=== PATIENT | male | born 1985 | race African-American/Black ===

== ENCOUNTER 2016-06-07 23:55 | Emergency (ER) | payer OTHER ==
[~2016-06-07] VITALS: Ht 170.2 cm; Wt 65.0 kg
[~2016-06-07 23:55] MED LIST: DICY1TAB26 PO; PANT20 PO; PERC5TAB12 PO; SUCR1TAB PO
[2016-06-07 23:57] VITALS: BP 142/76; PULSE 97; RESP 16; TEMP 99; O2SAT 95
[2016-06-08] MEDS ORDERED: SODIUM CHLOR 0.9% 1000 ML INJ 1,000 ML IV SCH (02:24)
[2016-06-08] MEDS ORDERED: MORPHINE SULFATE 4 MG/ML INJ IV PUSH ONE (02:30)
[2016-06-08] MEDS ORDERED: SODIUM CHLORIDE 0.9% FLUSH 5 ML FLUSH IVF PRN (02:30)
[2016-06-08] MEDS ORDERED: ONDANSETRON HCL 4 MG/2 ML VIAL IVP ONE (02:30)
--- NOTE | 2016-06-08 02:43 | PD ---
HPI Chief Complaint: Flank/Kidney Pain Time Seen by Provider: 02:19 Travel History International Travel<30 days: No Contact w/Intl Traveler<30days: No Traveled to known affect area: No History of Present Illness HPI Is a 30-year-old man who presents to the emergency department complaining of abdominal pain. He localizes the pain really to the left inguinal area. Started today. She's been constant, worsening. No history of previous similar symptoms. He has had episodes of clamminess and chills. Did not check his temperature. No other associated symptoms. He is not noticed any urinary changes or dark colored urine. No change in his bowel movements. No nausea or vomiting. Is no history of kidney stones. No testicular pain or tenderness. No other complaints. History Past Medical History Medical History: Denies Significant Hx Social History Alcohol Use: Yes (OCC.) Tobacco Use: Yes (1 PACK PER WEEK) Allergies-Medications (Allergen,Severity, Reaction): Coded Allergies: No Known Allergies (Verified , 06/08/16) Reported Meds & Prescriptions Reported Meds & Active Scripts Active Percocet 5-325 mg (Oxycodone/Acetaminophen) Oxycodone 5/325 Acetaminophen Tab 1- 2 Tab PO Q6H PRN Bentyl (Dicyclomine HCl) 20 Mg Tab 20 Mg PO Q8 Carafate 1 Gm Tab (Sucralfate) 1 Gm Tab 1 Gm PO TIDACHS Take with water on an empty stomach. To reduce the potential of adversely affecting the absorption of other drugs, take other drugs 2 hours prior to Sucralfate. Protonix (Pantoprazole Sodium) 20 Mg Tab 20 Mg PO DAILY Review of Systems Except as stated in HPI: all other systems reviewed are Neg Physical Exam Narrative GENERAL: 30-year-old man, no acute distress. SKIN: Warm and dry. NECK: Trachea midline. No JVD. CARDIOVASCULAR: Regular rate and rhythm. No murmur appreciated. RESPIRATORY: No accessory muscle use. Clear to auscultation. Breath sounds equal bilaterally. GASTROINTESTINAL: Abdomen is flat and soft. He has moderate left lower quadrant tenderness to palpation with some voluntary guarding. MUSCULOSKELETAL: No obvious deformities. No edema. NEUROLOGICAL: Awake and alert. No obvious cranial nerve deficits. Motor grossly within normal limits. Normal speech. PSYCHIATRIC: Appropriate mood and affect; insight and judgment normal. Data Data Last Documented VS Vital Signs Date Time Temp Pulse Resp B/P Pulse Ox O2 Delivery O2 Flow Rate FiO2 06/07/16 23:57 99.0 97 16 142/76 95 Room Air Orders Complete Blood Count With Diff (06/08/16 02:24) Comprehensive Metabolic Panel (06/08/16 02:24) Lipase (06/08/16 02:24) Urinalysis - C+S If Indicated (06/08/16 02:24) Ct Abd/Pel W/O Iv Contrast (06/08/16 02:24) Iv Access Insert/Monitor (06/08/16 02:24) Morphine Inj (Morphine Inj) (06/08/16 02:30) Ondansetron Inj (Zofran Inj) (06/08/16 02:30) Sodium Chlor 0.9% 1000 Ml Inj (Ns 1000 M (06/08/16 02:24) Sodium Chloride 0.9% Flush (Ns Flush) (06/08/16 02:30) Ciprofloxacin 400 Mg Premix (Cipro 400 M (06/08/16 03:30) Metronidazole 500 Mg Inj (Flagyl 500 Mg (06/08/16 03:30) Labs Laboratory Tests Test 06/08/16 02:00 White Blood Count 15.7 TH/MM3 Red Blood Count 5.02 MIL/MM3 Hemoglobin 15.1 GM/DL Hematocrit 43.7 % Mean Corpuscular Volume 87.1 FL Mean Corpuscular Hemoglobin 30.0 PG Mean Corpuscular Hemoglobin 34.4 % Concent Red Cell Distribution Width 13.5 % Platelet Count 246 TH/MM3 Mean Platelet Volume 10.0 FL Neutrophils (%) (Auto) 72.2 % Lymphocytes (%) (Auto) 14.8 % Monocytes (%) (Auto) 10.9 % Eosinophils (%) (Auto) 1.6 % Basophils (%) (Auto) 0.5 % Neutrophils # (Auto) 11.3 TH/MM3 Lymphocytes # (Auto) 2.3 TH/MM3 Monocytes # (Auto) 1.7 TH/MM3 Eosinophils # (Auto) 0.2 TH/MM3 Basophils # (Auto) 0.1 TH/MM3 CBC Comment DIFF FINAL Differential Comment Urine Color YELLOW Urine Turbidity CLEAR Urine pH 6.0 Urine Specific [place] 1.029 Urine Protein TRACE mg/dL Urine Glucose (UA) NEG mg/dL Urine Ketones NEG mg/dL Urine Occult Blood NEG Urine Nitrite NEG Urine Bilirubin NEG Urine Urobilinogen 2.0 MG/DL Urine Leukocyte Esterase NEG Urine RBC 2 /hpf Urine WBC 1 /hpf Urine Squamous Epithelial 1 /hpf Cells Urine Mucus MANY /lpf Microscopic Urinalysis Comment CULT NOT INDICATED Sodium Level 139 MEQ/L Potassium Level 3.8 MEQ/L Chloride Level 105 MEQ/L Carbon Dioxide Level 25.4 MEQ/L Anion Gap 9 MEQ/L Blood Urea Nitrogen 5 MG/DL Creatinine 0.75 MG/DL Estimat Glomerular Filtration 146 ML/MIN Rate Random Glucose 99 MG/DL Calcium Level 8.7 MG/DL Total Bilirubin 0.3 MG/DL Aspartate Amino Transf 16 U/L (AST/SGOT) Alanine Aminotransferase 34 U/L (ALT/SGPT) Alkaline Phosphatase 126 U/L Total Protein 7.6 GM/DL Albumin 3.7 GM/DL Lipase 99 U/L MDM Medical Decision Making Medical Screen Exam Complete: Yes Emergency Medical Condition: Yes Interpretation(s) LABS: CBC remarkable for mild leukocytosis. CMP unremarkable UA unremarkable CT abdomen and pelvis: Severe inflammatory changes about the distal descending colon. Multiple colonic diverticula in this region. Findings indicate acute diverticulitis. In the center of inflammatory change around it areas of gas it may represent large diverticulum early abscess formation. Differential Diagnosis Renal stone, diverticulitis, constipation, abscess, other Narrative Course Medical decision making INITIAL: Is a 30-year-old man who presents to the emergency department complaining of left inguinal abdominal pain. Looks well. No other complaints with it. Symptoms been going since today. He has a surprising amount of left lower quadrant tenderness to palpation. Could be renal stone we don't typically see this much tenderness. We'll check labs, CT imaging, reassess. FINAL: CTs shows acute diverticulitis. There is some air pockets that could suggest early abscess formation. We'll give antibiotics. Patient instructed to return if he is worsening at all. Diagnosis Primary Impression: Acute diverticulitis Additional Instructions: Take antibiotics as prescribed. Take Lortab as needed for pain. This should be getting steadily better not worse. If you have any worsening pain, fevers or chills, or if you're not improving after 48 hours, return to the emergency department. Follow-up with a primary physician in 3-5 days for repeat evaluation. Med/Other Pt SpecificInfo: Prescription(s) given Scripts Metronidazole (Flagyl)500 Mg [id number] Mg PO TID 14 Days Ref 0 Prov:Maurizio Choi MD 06/08/16 Ciprofloxacin (Cipro)500 Mg [id number] Mg PO BID 14 Days Prov:Maurizio Choi MD 06/08/16 Hydrocodone-Acetaminophen (Lortab)5-325 Mg Tab1-2 Tab PO Q6H PRN (PAIN) #12 TAB Prov:Maurizio Choi MD 06/08/16 Disposition: 01 DISCHARGE HOME Condition: Stable Maurizio Choi MD Jun 08, 2016 02:43
[2016-06-08 02:46] LABS: BLOOD, URINE NEG (NEG); COMMENT (UR) CULT NOT INDICATED; CULTURE IF INDICATED CULT NOT INDICATED; GLUCOSE,URINE NEG (NEG); KETONE, URINE NEG (NEG); MUCUS URINE MANY /lpf (OCC); NITRITE,URINE NEG (NEG); SQUAMOUS EPITHELIAL CELL URINE 1 /hpf (0-5); URINE COLOR YELLOW (YELLW/STRAW)
[2016-06-08 02:47] LABS: AUTOMATED NEUTROPHIL # 11.3 TH/MM3 (1.8-7.7); BASOPHIL # 0.1 TH/MM3 (0-0.2); BASOPHIL % 0.5 % (0.0-2.0); EOSINOPHIL # 0.2 TH/MM3 (0-0.4); EOSINOPHIL % 1.6 % (0.0-4.0); HEMATOCRIT 43.7 % (39.0-51.0); HEMO FLAGS DIFF FINAL; LYMPH % 14.8 % (9.0-44.0); LYMPHOCYTE # 2.3 TH/MM3 (1.0-4.8); MEAN CELL VOLUME 87.1 FL (80.0-100.0); MEAN CORPUSCULAR HGB CONC 34.4 % (32.0-36.0); MONO % 10.9 % (0.0-8.0); NEUT % 72.2 % (16.0-70.0); PLATELET COUNT 246 TH/MM3 (150-450); RED BLOOD COUNT 5.02 MIL/MM3 (4.50-5.90); RED CELL DISTRIBUTION WIDTH 13.5 % (11.6-17.2); WHITE BLOOD COUNT 15.7 TH/MM3 (4.0-11.0)
[2016-06-08 03:00] LABS: ALT (GPT) 34 U/L (12-78); ANION GAP 9 MEQ/L (5-15); AST (GOT) 16 U/L (15-37); BICARBONATE 25.4 MEQ/L (21.0-32.0); BLOOD UREA NITROGEN 5 MG/DL (7-18); CHLORIDE 105 MEQ/L (98-107); GLOMERULAR FILTRATION RATE 146 ML/MIN (>89); POTASSIUM 3.8 MEQ/L (3.5-5.1); SODIUM (NA) 139 MEQ/L (136-145)
[2016-06-08 03:02] LABS: ALKALINE PHOSPHATASE 126 U/L (45-117); TOTAL BILIRUBIN ADULT 0.3 MG/DL (0.2-1.0)
--- NOTE | 2016-06-08 03:17 | RADRPT ---
EXAM DATE/TIME: 06/08/2016 02:32 [facility] COMPARISON: No previous studies available for comparison. INDICATIONS : Left flank pain. ORAL CONTRAST: No oral contrast ingested. RADIATION DOSE: 5.65 CTDIvol (mGy) MEDICAL HISTORY : None SURGICAL HISTORY : None. ENCOUNTER: Initial ACUITY: 3 days PAIN SCALE: 8/10 LOCATION: Left flank TECHNIQUE: Volumetric scanning of the abdomen and pelvis was performed. Using automated exposure control and ad justment of the mA and/or kV according to patient size, radiation dose was kept as low as reasonably achievable to obtain optimal diagnostic quality images. FINDINGS: LOWER LUNGS: The visualized lower lungs are clear. LIVER: Homogeneous density without lesion. There is no dilation of the biliary tree. No calcified gallston es. SPLEEN: Normal size without lesion. PANCREAS: Within normal limits. KIDNEYS: Normal in size and shape. There is no mass, stone, or hydronephrosis. ADRENAL GLANDS: Within normal limits. VASCULAR: There is no aortic aneurysm. BOWEL/MESENTERY: Marked inflammatory change is seen about the distal descending colon. Multiple diverticula are seen i n this region. Adjacent in the center of the inflammatory change there is rounded 1.8 x 1.3 cm gas co llection. No evidence of bowel dilatation. Appendix within normal limits. ABDOMINAL WALL: Within normal limits. RETROPERITONEUM: There is no lymphadenopathy. BLADDER: No wall thickening or mass. REPRODUCTIVE: Within normal limits. INGUINAL: Within normal limits. MUSCULOSKELETAL: Within normal limits for patient age. CONCLUSION: Severe inflammatory changes about the distal descending colon. Multiple colonic diverticula as region . These findings indicate acute diverticulitis. In the center of the inflammatory changes there are r ounded areas of gas that may represent a large diverticulum or early abscess formation. Peter Kwong MD on June 08, 2016 at 3:06 Board Certified Radiologist. This report was verified electronically.
[2016-06-08] MEDS ORDERED: CIPROFLOXACIN 400 MG PREMIX 200 ML IV ONE (03:30)
[2016-06-08] MEDS ORDERED: metroNIDAZOLE 500 MG INJ 100 ML IV ONE (03:30)
[2016-06-08] MEDS ORDERED: CIPR-9 PO (04:15)
[2016-06-08] MEDS ORDERED: METR-1 PO (04:15)
[2016-06-08] MEDS ORDERED: HYDR-3533 PO (04:15)
[2016-06-08 06:45] VITALS: BP 135/77
== END 2016-06-08 06:45 | disposition home or self-care (01) ==
LOC: NEPE 23:55
DX: K57.92 Diverticulitis of intestine, part unspecified, without perforation or abscess without bleeding (principal); Z72.0 Tobacco use
CPT/HCPCS: 74176; 80053; 81001; 83690; 85025; 96361; 96365; 96367; 96375; 99284; J0744; J2270; J2405; J7030

== ENCOUNTER 2017-03-06 12:23 | Emergency (ER) | payer SELFPAY ==
[~2017-03-06] VITALS: Ht 170.2 cm; Wt 60.0 kg
[~2017-03-06 12:23] MED LIST changes: +CIPR-9 PO; +HYDR-3533 PO; +METR-1 PO
[2017-03-06] MEDS ORDERED: IOHEXOL 350 MG/ML 10 ML VIAL (for RAD DIAG) IVCONTRAST ONE (12:24)
[2017-03-06 12:25] VITALS: BP 130/85; PULSE 102; RESP 14; TEMP 98.7; O2SAT 6; O2SAT 96
--- NOTE | 2017-03-06 12:38 | PD ---
HPI Chief Complaint: GI Complaint Time Seen by Provider: 12:37 Travel History International Travel<30 days: No Contact w/Intl Traveler<30days: No Traveled to known affect area: No History of Present Illness HPI 31 YO M with PMH of diverticulitis presents to the ED for evaluation of 2 day history of loose stools, left lower quadrant abdominal discomfort, malaise. Rated 4/10. Onset gradual, quality constant. No alleviating or exacerbating factors reported. Patient endorses chills, has not measured a fever at home. He endorses passing gas from above and below. He denies nausea, vomiting, anorexia, dysuria, back pain. He states his symptoms are similar to previous episodes of diverticulitis. Also endorses sinus congestion, nonproductive cough "for about a week." Denies ear pain, sore throat, shortness of breath. Did not receive this years flu shot. No history of abdominal surgery. He has never had an endoscopy. PFSH Past Medical History Autoimmune Disease: No Blood Disorders: No Anxiety: Yes Depression: No Cancer: No Cardiovascular Problems: No Diminished Hearing: No Endocrine: No Genitourinary: No Immune Disorder: No Musculoskeletal: No Neurologic: No Psychiatric: No Reproductive: No Respiratory: No Ulcer: Yes Past Surgical History Abdominal Surgery: No Cardiac Surgery: No Ear Surgery: No Endocrine Surgery: No Eye Surgery: No Genitourinary Surgery: No Gynecologic Surgery: No Oral Surgery: No Pacemaker: No Thoracic Surgery: No Social History Alcohol Use: Yes (OCC.) Tobacco Use: Yes (1 PACK PER WEEK) Substance Use: No Allergies-Medications (Allergen,Severity, Reaction): Coded Allergies: No Known Allergies (Verified Allergy, Unknown, 03/06/17) Reported Meds & Prescriptions Reported Meds & Active Scripts Active Flagyl (Metronidazole) 500 Mg Tab 500 Mg PO TID 14 Days Cipro (Ciprofloxacin HCl) 500 Mg Tab 500 Mg PO BID 14 Days Lortab (Hydrocodone-Acetaminophen) 5-325 Mg Tab 1-2 Tab PO Q6H PRN Percocet 5-325 mg (Oxycodone/Acetaminophen) Oxycodone 5/325 Acetaminophen Tab 1- 2 Tab PO Q6H PRN Bentyl (Dicyclomine HCl) 20 Mg Tab 20 Mg PO Q8 Carafate 1 Gm Tab (Sucralfate) 1 Gm Tab 1 Gm PO TIDACHS Take with water on an empty stomach. To reduce the potential of adversely affecting the absorption of other drugs, take other drugs 2 hours prior to Sucralfate. Protonix (Pantoprazole Sodium) 20 Mg Tab 20 Mg PO DAILY Review of Systems Except as stated in HPI: all other systems reviewed are Neg Physical Exam Narrative GENERAL: Well-nourished, well-developed black male in no acute distress. SKIN: Warm and dry. Tattoos noted HEAD: Normocephalic. Atraumatic. EYES: No scleral icterus. No injection or drainage. PERRLA. EOMI. ENT: Pearly goyal tympanic membranes bilaterally. Nasal mucosa is moist. Oropharynx mild posterior erythema, no edema or exudate. NECK: Supple, trachea midline. No JVD or lymphadenopathy. CARDIOVASCULAR: Regular rate and rhythm without murmurs, gallops, or rubs. RESPIRATORY: Breath sounds clear and equal bilaterally. No accessory muscle use. GASTROINTESTINAL: Abdomen soft, nondistended. + Bowel sounds. Tender to palpation in the lower quadrants, left greater than right. MUSCULOSKELETAL: No cyanosis, or edema. Moves extremities spontaneously. BACK: Nontender without obvious deformity. No CVA tenderness. Data Data Last Documented VS Vital Signs Date Time Temp Pulse Resp B/P (MAP) Pulse Ox O2 Delivery O2 Flow Rate FiO2 03/06/17 15:22 03/06/17 13:25 18 03/06/17 12:51 99 Room Air 03/06/17 12:25 98.7 102 Orders Orders Complete Blood Count With Diff (03/06/17 12:46) Comprehensive Metabolic Panel (03/06/17 12:46) Lipase (03/06/17 12:46) Lactic Acid (03/06/17 12:46) Prothrombin Time / Inr (Pt) (03/06/17 12:46) Act Partial Throm Time (Ptt) (03/06/17 12:46) Urinalysis - C+S If Indicated (03/06/17 12:46) Ct Abd/Pel W Iv Contrast(Rout) (03/06/17 12:46) Iv Access Insert/Monitor (03/06/17 12:46) Ecg Monitoring (03/06/17 12:46) Oximetry (03/06/17 12:46) NPO (03/06/17 12:46) Morphine Inj (Morphine Inj) (03/06/17 13:00) Sodium Chlor 0.9% 1000 Ml Inj (Ns 1000 M (03/06/17 12:46) Sodium Chloride 0.9% Flush (Ns Flush) (03/06/17 13:00) Iohexol 350 Inj (Omnipaque 350 Inj) (03/06/17 12:24) Ed Discharge Order (03/06/17 15:15) Labs Laboratory Tests Test 03/06/17 13:00 03/06/17 13:40 White Blood Count 11.5 TH/MM3 Red Blood Count 5.11 MIL/MM3 Hemoglobin 14.9 GM/DL Hematocrit 44.6 % Mean Corpuscular Volume 87.3 FL Mean Corpuscular Hemoglobin 29.2 PG Mean Corpuscular Hemoglobin Concent 33.4 % Red Cell Distribution Width 13.1 % Platelet Count 212 TH/MM3 Mean Platelet Volume 9.4 FL Neutrophils (%) (Auto) 74.8 % Lymphocytes (%) (Auto) 12.3 % Monocytes (%) (Auto) 11.0 % Eosinophils (%) (Auto) 1.4 % Basophils (%) (Auto) 0.5 % Neutrophils # (Auto) 8.6 TH/MM3 Lymphocytes # (Auto) 1.4 TH/MM3 Monocytes # (Auto) 1.3 TH/MM3 Eosinophils # (Auto) 0.2 TH/MM3 Basophils # (Auto) 0.1 TH/MM3 CBC Comment DIFF FINAL Differential Comment Prothrombin Time 11.6 SEC Prothromb Time International Ratio 1.1 RATIO Activated Partial Thromboplast Time 29.4 SEC Blood Urea Nitrogen 7 MG/DL Creatinine 0.84 MG/DL Random Glucose 89 MG/DL Total Protein 8.2 GM/DL Albumin 3.5 GM/DL Calcium Level 8.8 MG/DL Alkaline Phosphatase 121 U/L Aspartate Amino Transf (AST/SGOT) 22 U/L Alanine Aminotransferase (ALT/SGPT) 28 U/L Total Bilirubin 0.4 MG/DL Sodium Level 135 MEQ/L Potassium Level 3.7 MEQ/L Chloride Level 98 MEQ/L Carbon Dioxide Level 29.4 MEQ/L Anion Gap 8 MEQ/L Estimat Glomerular Filtration Rate 128 ML/MIN Lactic Acid Level 1.0 mmol/L Lipase 91 U/L Urine Color YELLOW Urine Turbidity HAZY Urine pH 6.5 Urine Specific [place] 1.029 Urine Protein 30 mg/dL Urine Glucose (UA) NEG mg/dL Urine Ketones 80 mg/dL Urine Occult Blood NEG Urine Nitrite NEG Urine Bilirubin NEG Urine Urobilinogen 8.0 MG/DL Urine Leukocyte Esterase NEG Urine RBC LESS THAN 1 /hpf Urine WBC 2 /hpf Urine Squamous Epithelial Cells <1 /hpf Urine Hyaline Casts 1 /lpf Urine Mucus MOD /lpf Microscopic Urinalysis Comment CULT NOT INDICATED MDM Medical Decision Making Medical Screen Exam Complete: Yes Emergency Medical Condition: Yes Differential Diagnosis Diverticulitis versus colitis versus appendicitis versus viral syndrome versus other Narrative Course 31 YO M with PMH of diverticulitis presents to the ED for evaluation of 2 day history of loose stools, left lower quadrant abdominal discomfort, malaise. Rated 4/10. Onset gradual, quality constant. Patient endorses chills, has not measured a fever at home. He endorses passing gas from above and below. He denies nausea, vomiting, anorexia, dysuria, back pain. He states his symptoms are similar to previous episodes of diverticulitis. No history of abdominal surgery. He has never had an endoscopy. Vitals reviewed. Physical exam reveals a nontoxic-appearing black male no acute distress. There is tenderness in the bilateral lower quadrants, left greater than right. Otherwise for unremarkable. IV was established patient was administered 1 L normal saline, 2 mg morphine, 4 mg Zofran IV. CBC: CBC 11.5, hemoglobin 14.9. INR 1.1. CMP unremarkable. Lipase 91 Lactic acid 1.0 UA: No culture indicated. On recheck the patient reports improvement of his pain. No further episodes of diarrhea in the emergency room. Patient states he is unsure of what to eat after being diagnosed with diverticulitis in the past. This information was provided to him at discharge. He is instructed to push fluids, rest, return for worsening symptoms. He was provided a work note. He indicated understanding of instructions and is agreeable to thecare plan. He stable and discharged home. Diagnosis Primary Impression: Left lower quadrant pain Additional Impressions: History of diverticulitis Diarrhea Qualified Codes: R19.7 - Diarrhea, unspecified Referrals: Lori Hurtado MD Primary Care Physician Patient Instructions: Acute Diarrhea (GEN), Diverticulitis Diet (ED), General Instructions Departure Forms: Tests/Procedures, Work Release Enter return to work date: Mar 08, 2017 Additional Instructions: Rest, hydrate. Return to normal, gentle activities as tolerated. Follow the diet recommendations provided at discharge. 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 Return to the ED for any urgent or emergent medical condition. Disposition: 01 DISCHARGE HOME Condition: Stable Edel Medina Mar 06, 2017 12:38
[2017-03-06] MEDS ORDERED: SODIUM CHLOR 0.9% 1000 ML INJ 1,000 ML IV SCH (12:46)
[2017-03-06 12:51] VITALS: O2SAT 99
[2017-03-06] MEDS ORDERED: MORPHINE SULFATE 4 MG/ML INJ IV PUSH ONE (13:00)
[2017-03-06] MEDS ORDERED: SODIUM CHLORIDE 0.9% FLUSH 10 ML FLUSH IV FLUSH PRN (13:00)
[2017-03-06 13:19] LABS: AUTOMATED NEUTROPHIL # 8.6 TH/MM3 (1.8-7.7); BASOPHIL # 0.1 TH/MM3 (0-0.2); BASOPHIL % 0.5 % (0.0-2.0); EOSINOPHIL # 0.2 TH/MM3 (0-0.4); EOSINOPHIL % 1.4 % (0.0-4.0); HEMATOCRIT 44.6 % (39.0-51.0); HEMO FLAGS DIFF FINAL; LYMPH % 12.3 % (9.0-44.0); LYMPHOCYTE # 1.4 TH/MM3 (1.0-4.8); MEAN CELL VOLUME 87.3 FL (80.0-100.0); MEAN CORPUSCULAR HEMOGLOBIN 29.2 PG (27.0-34.0); MEAN CORPUSCULAR HGB CONC 33.4 % (32.0-36.0); NEUT % 74.8 % (16.0-70.0); PLATELET COUNT 212 TH/MM3 (150-450); RED BLOOD COUNT 5.11 MIL/MM3 (4.50-5.90); RED CELL DISTRIBUTION WIDTH 13.1 % (11.6-17.2); WHITE BLOOD COUNT 11.5 TH/MM3 (4.0-11.0)
[2017-03-06 13:25] VITALS: RESP 18
[2017-03-06 13:26] LABS: APTT (PATIENT) 29.4 SEC (24.3-30.1); INTERNATIONAL NORMALIZED RATIO 1.1 RATIO; PROTHROMBIN TIME - PATIENT 11.6 SEC (9.8-11.6)
[2017-03-06 13:53] LABS: ALKALINE PHOSPHATASE 121 U/L (45-117); ALT (GPT) 28 U/L (12-78); ANION GAP 8 MEQ/L (5-15); AST (GOT) 22 U/L (15-37); BICARBONATE 29.4 MEQ/L (21.0-32.0); BLOOD UREA NITROGEN 7 MG/DL (7-18); CHLORIDE 98 MEQ/L (98-107); GLOMERULAR FILTRATION RATE 128 ML/MIN (>89); POTASSIUM 3.7 MEQ/L (3.5-5.1); SODIUM (NA) 135 MEQ/L (136-145); TOTAL BILIRUBIN ADULT 0.4 MG/DL (0.2-1.0)
[2017-03-06 14:17] LABS: BLOOD, URINE NEG (NEG); COMMENT (UR) CULT NOT INDICATED; CULTURE IF INDICATED CULT NOT INDICATED; GLUCOSE,URINE NEG (NEG); HYALINE CAST, URINE 1 /lpf (RARE); KETONE, URINE 80 mg/dL (NEG); MUCUS URINE MOD /lpf (OCC); NITRITE,URINE NEG (NEG); PH, URINE 6.5 (5.0-8.5); SQUAMOUS EPITHELIAL CELL URINE <1 /hpf (0-5); URINE COLOR YELLOW (YELLW/STRAW)
--- NOTE | 2017-03-06 15:11 | RADRPT ---
EXAM DATE/TIME: 03/06/2017 14:48 [facility] COMPARISON: No previous studies available for comparison. INDICATIONS : Left lower quadrant pain, diarrhea. IV CONTRAST: 96 cc Omnipaque 350 (iohexol) IV ORAL CONTRAST: No oral contrast ingested. RADIATION DOSE: 5.10 CTDIvol (mGy) MEDICAL HISTORY : Diverticulitis. Ulcers. SURGICAL HISTORY : None. ENCOUNTER: Initial ACUITY: 3 days PAIN SCALE: 5/10 LOCATION: Left lower quadrant TECHNIQUE: Volumetric scanning of the abdomen and pelvis was performed. Using automated exposure control and ad justment of the mA and/or kV according to patient size, radiation dose was kept as low as reasonably achievable to obtain optimal diagnostic quality images. DICOM format image data is available electro nically for review and comparison. FINDINGS: LOWER LUNGS: The visualized lower lungs are clear. LIVER: Homogeneous density without lesion. There is no dilation of the biliary tree. No calcified gallston es. SPLEEN: Normal size without lesion. PANCREAS: Within normal limits. KIDNEYS: Normal in size and shape. There is no mass, stone or hydronephrosis. ADRENAL GLANDS: Within normal limits. VASCULAR: There is no aortic aneurysm. BOWEL/MESENTERY: The stomach, small bowel, and colon demonstrate no acute abnormality. There is no free intraperitone al air or fluid. The appendix is unremarkable. No inflammatory changes are seen. There is stool throu ghout the colon. ABDOMINAL WALL: Within normal limits. RETROPERITONEUM: There is no lymphadenopathy. BLADDER: No wall thickening or mass. REPRODUCTIVE: Within normal limits. INGUINAL: There is no lymphadenopathy or hernia. MUSCULOSKELETAL: Within normal limits for patient age. CONCLUSION: Unremarkable CT scan of the abdomen and pelvis. Desmond Corey MD on March 06, 2017 at 15:08 Board Certified Radiologist. This report was verified electronically.
== END 2017-03-06 15:58 | disposition home or self-care (01) ==
LOC: NEPC 12:23
DX: K57.92 Diverticulitis of intestine, part unspecified, without perforation or abscess without bleeding (principal); R05 Cough; F17.200 Nicotine dependence, unspecified, uncomplicated
CPT/HCPCS: 74177; 80053; 81001; 83605; 83690; 85025; 85610; 85730; 96361; 96374; 99285; J2270; J7030; Q9967

== ENCOUNTER 2017-04-14 10:24 | Emergency (ER) | payer SELFPAY ==
[~2017-04-14] VITALS: Ht 167.6 cm; Wt 65.0 kg
[2017-04-14 10:26] VITALS: BP 130/88; PULSE 114; RESP 16; TEMP 101.2; O2SAT 95
[2017-04-14 10:57] VITALS: BP 137/80; PULSE 97; RESP 16; O2SAT 97
[2017-04-14] MEDS ORDERED: ACETAMINOPHEN 500 MG CPLT PO ONE (11:30)
[2017-04-14] MEDS ORDERED: IBUPROFEN 600 MG TAB PO ONE (11:30)
--- NOTE | 2017-04-14 11:35 | PD ---
HPI Chief Complaint: Cold / Flu Symptoms Time Seen by Provider: 11:02 Travel History International Travel<30 days: No Contact w/Intl Traveler<30days: No Traveled to known affect area: No History of Present Illness HPI This patient complains of having fever and body aches. He's had a bit of congestion but denies productive cough. No sore throat. He does have occasional diarrhea. No abdominal pain or chest pain or shortness of breath. No alleviating factors. Symptoms severity is mild to moderate PFSH Past Medical History Autoimmune Disease: No Blood Disorders: No Anxiety: Yes Depression: No Cancer: No Cardiovascular Problems: No Diminished Hearing: No Diverticulitis: Yes Endocrine: No Genitourinary: No Immune Disorder: No Musculoskeletal: No Neurologic: No Psychiatric: No Reproductive: No Respiratory: No Immunizations Current: Yes Ulcer: Yes Tetanus Vaccination: < 5 Years ?: Not Past Surgical History Abdominal Surgery: No Cardiac Surgery: No Ear Surgery: No Endocrine Surgery: No Eye Surgery: No Genitourinary Surgery: No Gynecologic Surgery: No Oral Surgery: No Pacemaker: No Thoracic Surgery: No Social History Alcohol Use: Yes (OCCASIONALLY ) Tobacco Use: Yes (1 PACK PER WEEK) Substance Use: Yes (MARIJUANA OCCASIONALLY ) Allergies-Medications (Allergen,Severity, Reaction): Coded Allergies: No Known Allergies (Verified Allergy, Unknown, 03/06/17) Reported Meds & Prescriptions Reported Meds & Active Scripts Active No Active Prescriptions or Reported Medications Review of Systems General / Constitutional: Positive: Fever HENT: Positive: Congestion Cardiovascular: No: Chest Pain or Discomfort Respiratory: No: Cough Gastrointestinal: No: Abdominal Pain Physical Exam Narrative RESPIRATORY: Respiratory effort unlabored, no retractions or use of accessory muscles. Breath sounds are clear and symmetric. CARDIOVASCULAR: Regular rate and rhythm without murmur. Extremities showed no edema or varicosities. No meningeal signs Throat clear GASTROINTESTINAL: Abdomen soft, non-tender, nondistended. Positive bowel sounds. No hepato-splenomegaly, or palpable masses. No guarding. Data Data Last Documented VS Vital Signs Date Time Temp Pulse Resp B/P (MAP) Pulse Ox O2 Delivery O2 Flow Rate FiO2 04/14/17 11:38 99.8 04/14/17 10:57 97 16 137/80 (99) 97 Room Air Orders Orders Acetaminophen (Tylenol) (04/14/17 11:30) Ibuprofen (Motrin) (04/14/17 11:30) Influenzae A/B Antigen (04/14/17 11:28) MDM Medical Decision Making Medical Screen Exam Complete: Yes Emergency Medical Condition: Yes Medical Record Reviewed: Yes Differential Diagnosis Flu syndrome, bronchitis, URI Narrative Course I have reviewed the patient's electronic medical record. I gave him a dose of Tylenol and Motrin for fever and aches Influenza swab is negative He has no meningeal signs Does not look septic or toxic Recommending primary care follow-up. I think most likely he has an acute viral syndrome Diagnosis Primary Impression: Febrile illness, acute Additional Instructions: The patient was advised to follow up with their physician and return if they worsen. Med/Other Pt SpecificInfo: Other Scripts No Active Prescriptions or Reported Meds Disposition: 01 DISCHARGE HOME Condition: Stable Shemar Wyatt MD Apr 14, 2017 11:35
[2017-04-14 11:38] VITALS: TEMP 99.8
[2017-04-14 13:08] VITALS: TEMP 98.2
== END 2017-04-14 13:00 | disposition home or self-care (01) ==
LOC: NEPD 10:24
DX: R50.9 Fever, unspecified (principal); F41.9 Anxiety disorder, unspecified; F17.200 Nicotine dependence, unspecified, uncomplicated
CPT/HCPCS: 87804; 99282